=== PATIENT | female | born 1960 | race Caucasian/White ===

== ENCOUNTER 2018-05-27 14:54 | Emergency (ER) | payer SELFPAY ==
[~2018-05-27] VITALS: Ht 165.1 cm; Wt 74.8 kg
[2018-05-27] MEDS ORDERED: Zithromax250 MG PO (15:53)
[2018-05-27] MEDS ORDERED: Cheratussin AC118 ML PO (15:53)
[2018-05-27] MEDS ORDERED: SINUS 12 HOUR120 MG PO (15:53)
== END 2018-05-27 16:01 | disposition home or self-care (01) ==
LOC: ER 14:54
DX: R05 Cough (principal)
CPT/HCPCS: 99283

== ENCOUNTER 2022-09-12 11:34 | Day surgery (SDC) | payer OTHER ==
[~2022-09-12] VITALS: Ht 162.6 cm; Wt 83.5 kg
[~2022-09-12 11:34] MED LIST: Cheratussin AC118 ML PO; SINUS 12 HOUR120 MG PO; Zithromax250 MG PO
[2022-09-12] MEDS ORDERED: GABA100 (11:44)
[2022-09-12] MEDS ORDERED: CLIMARA1 EACH (11:44)
[2022-09-12] MEDS ORDERED: Celexa10 MG (11:45)
--- NOTE | 2022-09-12 13:28 | NUR ---
09/12/22 1328 Mervat Zapata PT WITH SEVERE RESTLESS LEGS/BODY DURING PROCEDURE. MD GOULD SWITCHED FROM PROPOFOL TO VERSED FOR SEDATION BUT SHE STILL REQUIRED PHYSICAL SAFETY FROM HARMING HERSELF WITH PEOPLE GENTLY HOLDING HER. PT MOST LIKELY WILL REQUIRE ANESTHESIA NEXT TIME FOR PROCEDURE.
[2022-09-12 13:46] VITALS: BP 130/77
== END 2022-09-12 13:46 | disposition home or self-care (01) ==
LOC: ORSCSDS 11:34
PROVIDERS: Internal Medicine Gastroenterology
PROC: 0DJD8ZZ Inspection of Lower Intestinal Tract, Via Natural or Artificial Opening Endoscopic (ICD-10-PCS; principal; 2022-09-12 12:15)
PROC: 0DB58ZX Excision of Esophagus, Via Natural or Artificial Opening Endoscopic, Diagnostic (ICD-10-PCS; principal; 2022-09-12 12:15)
DX: K21.9 Gastro-esophageal reflux disease without esophagitis (principal); Z12.11 Encounter for screening for malignant neoplasm of colon; K57.30 Diverticulosis of large intestine without perforation or abscess without bleeding; K44.9 Diaphragmatic hernia without obstruction or gangrene; Z79.899 Other long term (current) drug therapy
CPT/HCPCS: 88305; J2250; J2704; J7120